=== PATIENT | female | born 1940 | race Caucasian/White ===

== ENCOUNTER 2017-04-08 10:50 | Observation (INO) | payer OTHER ==
--- NOTE | ~2017-04-08 | HP ---
History And Physical [facility] [address] [place]. [address] NAME: SHIVANI DARBY : 38 STATUS : ADM Zuleika PAT#: [id number] AGE: 76 ADM/REG DATE : 04/08/17 MR#: [id number] REPORT SERV DATE: 04/08/17 DICTATED BY: NAN GOTTI DATE: 04/08/17 REPORT STATUS : Draft TRANSCRIBED BY: MODPaxton DATE: 04/08/17 DATE OF ADMISSION: 04/08/2017 PRIMARY CARE PROVIDER: Dr. Chino Kelly. CENTER HOLE REAMER: Previously Jayson Rivera M.D. CHIEF COMPLAINT: Continued palpitations and chest pain. HISTORY OF PRESENT ILLNESS: This is a very pleasant 76-year-old white female with no known history of CAD, who states that she has been bothered by palpitations generally at night. She underwent a recent Holter monitor in late February 2017, that revealed sinus rhythm with frequent PACs and a brief run of SVT. On this morning April 08 around 0800, the patient awoke, experienced some substernal mid chest pain that radiated to her left arm, also described as a numbness. She walks from the bedroom to the kitchen and while sitting in the chair, felt as though she might pass out. She reports associated nausea and diaphoresis. Denies shortness of breath, dizziness, or belching. At its most intense, she rates the chest pain a 6/10. At the time of interview in the [facility], she is pain-free. She did take full dose aspirin prior to coming to the emergency room with relief of her chest pain but her nausea persisted. The patient denies any personal history of myocardial infarction, stroke, DVT, or pulmonary embolus. The patient denies any recent fever or chills. Describes nighttime palpitations. No syncopal episodes. Denies PND or orthopnea. PAST MEDICAL HISTORY: 1. Hypertension. 2. Dyslipidemia. 3. AODM. 4. GERD. 5. History of palpitations with recent Holter. 6. Positive family history for early CAD. PAST SURGICAL HISTORY: 1. Parathyroidectomy. 2. Deviated septum repair. 3. Tubal ligation. SOCIAL HISTORY: She is , with three children. She is retired from [employer]. Does not have an exercise routine. Denies tobacco, alcohol, or illicits. FAMILY HISTORY: Father with a stroke in his 70s and 90s, at the age of 96. Brother with a heart attack in his 60s, at the age of 83. REVIEW OF SYSTEMS: A 14-point review of systems performed, significant for HPI. No other contributory History And Physical [address] [address] NAME: SHIVANI DARBY : [birth year] STATUS : ADM Zuleika PAT#: [id number] AGE: 76 ADM/REG DATE : 04/08/17 MR#: [id number] REPORT SERV DATE: 04/08/17 DICTATED BY: NAN GOTTI DATE: 04/08/17 REPORT STATUS : Draft TRANSCRIBED BY: [place] DATE: 04/08/17 diagnoses identified. ALLERGIES: TO CODEINE, RASH AND SWELLING AND LEVAQUIN, PALPITATIONS. HOME MEDICATIONS: 1. Aspirin 81 mg daily p.r.n. 2. Lopid 600 mg twice daily. 3. Amaryl 2 mg twice daily. 4. Hydrochlorothiazide 12.5 mg daily. 5. Cozaar 100 mg daily. 6. Glucophage 500 mg twice daily. 7. Omeprazole 40 mg daily. 8. Pravachol 80 mg nightly. PHYSICAL EXAMINATION: VITAL SIGNS: Bilateral blood pressures on arrival, right 162/79, left 161/74; heart rate 52, respirations 17, temperature 98.1, and O2 saturation 95% on room air. Height 5 feet 3 inches. Weight 166 pounds. BMI 29.4. GENERAL: Cooperative, in no apparent distress. HEENT: Pupils 2 mm, sclera nonicteric. Nares patent. Moist mucous membranes. No xanthelasma. NECK: Trachea midline, no thyromegaly. No JVD. No bruits. LYMPH: No cervical lymphadenopathy. No supraclavicular lymphadenopathy. RESPIRATORY: Unlabored respirations. Breath sounds clear bilaterally to posterior auscultation. No wheezes or rhonchi. CARDIOVASCULAR: Regular rate. No murmur, rub or gallop appreciated. Pedal pulses faint, feet cool to touch (reportedly unchanged). EXTREMITIES: Without edema. Pulses 2+ bilaterally. ABDOMEN: Soft, nontender, nondistended, normal bowel sounds auscultated throughout. No organomegaly. SKIN: Warm, dry extremities. No pallor, or cyanosis. PSYCHIATRIC: Appropriate affect. Alert, oriented x3. LABORATORY DATA: Troponin less than 0.02, second pending. Potassium 4.2, BUN 14, creatinine 1.12, glucose 196, and magnesium 1.9. WBC 8.0, hemoglobin 13.6, hematocrit 40.0, and platelet count 280,000. EKG: Sinus bradycardia. Echo, 2011: EF 62% without RWMA. Trace MR and mild TR. Carotid 02/2012: Grade 1 bilaterally. Holter 02/27/2017: Heart rate 48 to 98 beats per minute. Average 63 beats per minute. Frequent PACs. Brief SVT noted. ASSESSMENT AND PLAN: History And Physical [address] [address] NAME: SHIVANI DARBY : 38 STATUS : ADM Zuleika PAT#: [id number] AGE: 76 ADM/REG DATE : 04/08/17 MR#: [id number] REPORT SERV DATE: 04/08/17 DICTATED BY: NAN GOTTI DATE: 04/08/17 REPORT STATUS : Draft TRANSCRIBED BY: [place] DATE: 04/08/17 1. Substernal chest pain. Rule out myocardial infarction per protocol with serial enzymes and serial EKGs, if all troponins negative and EKG remains stable, the patient will be held n.p.o. after midnight for MPI on April 09. The patient will be discharged home if low risk, no ischemia. If anything suggestive of ischemia, Cardiology referral will be initiated. Otherwise, the patient will have to follow up her PCP in one to two weeks with all studies being sent to that office. 2. Palpitations. Recent Holter with brief SVT and frequent PACs. Check a TSH and free T4. Also echocardiogram. 3. Hypertension. Monitor blood pressure and continue home medications. 4. Dyslipidemia. Continue statin. 5. Adult onset diabetes mellitus. Hold metformin. Level 1 sliding scale correction. 6. Creatinine 1.12, previous 0.67, we will recheck a BMP in the morning. LC/[place] CONCHA Correa APN-BC / [id number] CC: CONCHA Correa, TARAS
[2017-04-08 10:22] LABS: BASOPHILS 0.6 %; BASOPHILS ABSOLUTE 0.05 10/3/uL (0.0-0.16); EOSINOPHILS 1.5 %; EOSINOPHILS ABSOLUTE 0.12 10/3/uL (0.0-0.53); HEMOGLOBIN 13.6 g/dL (12.0-16.0); IMMATURE GRANULOCYTES 0.4 %; IMMATURE GRANULOCYTES ABSOLUTE 0.03 10/3/uL (0.0-0.11); LYMPHOCYTES 34.7 %; LYMPHOCYTES ABSOLUTE 2.77 10/3/uL (0.67-4.30); MEAN CORPUSCULAR HEMOGLOB 28.5 pg (26.0-34.0); MEAN CORPUSCULAR VOLUME 83.7 fL (80-100); MONOCYTES 6.4 %; MONOCYTES ABSOLUTE 0.51 10/3/uL (0.21-1.20); NEUTROPHILS 56.4 %; NEUTROPHILS ABSOLUTE 4.51 10/3/uL (2.02-8.40); PLATELET COUNT 280 10/3/uL (150-400); RED CELL COUNT 4.78 10/6/uL (4.0-5.6)
[2017-04-08 10:23] LABS: MANUAL DIFF NO %
[2017-04-08 10:28] LABS: INTERNATIONAL NORMAL RATI 1.1 UNITS (-); PARTIAL THROMBO TIME 26.6 SEC (22.5-37.2); PROTIME (NOT ORD) 13.8 SEC (12.0-14.5)
[2017-04-08 10:37] LABS: CALCIUM, SERUM 10.1 MG/DL (8.5-10.4); CHEST PAIN PROFILE TAT 0 Hrs 21 Mins; CHLORIDE, SERUM 102 MMOL/L (96-112); CO2 (CARBON DIOXIDE) 29 MMOL/L (24-34); CREATININE 1.12 MG/DL (0.55-1.02); GFR AFRICAN AMERICAN 55 ML/MIN (>=60); GFR NON AFRICAN AMERICAN 47 ML/MIN (>=60); POTASSIUM, SERUM 4.2 MMOL/L (3.5-5.3); SODIUM, SERUM 137 MMOL/L (135-148); TROPONIN I <0.02 NG/ML (<0.05)
[2017-04-08 10:38] LABS: BUN (BLOOD UREA NITROGEN) 14 MG/DL (6-23); GLUCOSE, SERUM 196 MG/DL (60-99)
[~2017-04-08 10:50] MED LIST: ASAB PO; COZAAR100 MG PO; GLUCPH PO; HYDROCHLOROT12.5 MG PO; JANUVIA100 MG PO; MOBIC7.5 PO; NAP250 PO; PRAVACHOL80 MG PO; T PO
[2017-04-08] MEDS ORDERED: GLUCPH PO (11:02)
[2017-04-08] MEDS ORDERED: COZAAR100 MG PO (11:02)
[2017-04-08] MEDS ORDERED: HYDROCHLOROT12.5 MG PO (11:03)
[2017-04-08] MEDS ORDERED: LOPID6 PO (11:03)
[2017-04-08] MEDS ORDERED: PRAVACHOL80 MG PO (11:04)
[2017-04-08] MEDS ORDERED: PRILOSEC40 MG PO (11:04)
[2017-04-08] MEDS ORDERED: AMARYL2 PO (11:04)
[2017-04-08] MEDS ORDERED: ASAB PO (11:06)
[2017-04-08] MEDS ORDERED: BAYER500 MG PO (11:07)
[2017-04-08 16:32] LABS: TROPONIN I <0.02 NG/ML (<0.05); ULTRASENSITIVE TSH 0.793 MCIU/ML (0.358-3.740)
[2017-04-09 06:09] LABS: BUN (BLOOD UREA NITROGEN) 15 MG/DL (6-23); CALCIUM, SERUM 9.6 MG/DL (8.5-10.4); CHLORIDE, SERUM 104 MMOL/L (96-112); CO2 (CARBON DIOXIDE) 29 MMOL/L (24-34); CREATININE 1.05 MG/DL (0.55-1.02); GFR AFRICAN AMERICAN 59 ML/MIN (>=60); GFR NON AFRICAN AMERICAN 51 ML/MIN (>=60); POTASSIUM, SERUM 4.3 MMOL/L (3.5-5.3); SODIUM, SERUM 140 MMOL/L (135-148)
[2017-04-09 06:10] LABS: GLUCOSE, SERUM 68 MG/DL (60-99)
== END 2017-04-09 13:10 | disposition home or self-care (01) ==
LOC: ER 10:50 → CDU1 12:16 → CDU2 12:28
PROVIDERS: Clinical Nurse Specialist; Emergency Medicine
DX: R07.2 Precordial pain (principal); I10 Essential (primary) hypertension; E78.5 Hyperlipidemia, unspecified; E11.9 Type 2 diabetes mellitus without complications; K21.9 Gastro-esophageal reflux disease without esophagitis; Z98.51 Tubal ligation status; Z98.890 Other specified postprocedural states; Z88.1 Allergy status to other antibiotic agents; Z88.5 Allergy status to narcotic agent; Z88.8 Allergy status to other drugs, medicaments and biological substances
CPT/HCPCS: 71010; 78452; 80048; 82962; 83735; 84439; 84443; 84484; 85025; 85610; 85730; 93005; 93017; 93306; 96374; 99285; A9270-GY; A9502; G0378; J0153; J2405